=== PATIENT | male | born 2000 | race Caucasian/White ===

== ENCOUNTER 2021-10-02 17:26 | Emergency (ER) | payer SELFPAY ==
[2021-10-02] MEDS ORDERED: Tetracaine 0.5% PF 4 ML BOT ONE (18:19)
[2021-10-02] MEDS ORDERED: Fluorescein Opthalmic Strip ONE (18:19)
== END 2021-10-02 18:44 | disposition home or self-care (01) ==
LOC: CSHERS 17:26
DX: H10.9 Unspecified conjunctivitis (principal)
CPT/HCPCS: 99282